=== PATIENT | male | born 1990 | race Caucasian/White ===

== ENCOUNTER 2021-08-20 21:51 | Emergency (ER) | payer SELFPAY ==
[~2021-08-20] VITALS: Ht 162.6 cm; Wt 74.0 kg
[2021-08-20] MEDS ORDERED: FLUORESCEIN SODIUM 1MG/STRIP LEFTEYE ONE (22:45)
[2021-08-20] MEDS ORDERED: TETRACAINE 0.5% OPHTH DROPS 4ML LEFTEYE ONE (22:45)
[2021-08-20] MEDS ORDERED: BALANCED SALT IRRIG SOLN 15ML IR ONE (22:45)
[2021-08-21] MEDS ORDERED: ACETAMINOPHEN WITH CODEINE 300/30MG TABLET PO STA (01:14)
[2021-08-21] MEDS ORDERED: NAPR-681 PO (03:11)
[2021-08-21] MEDS ORDERED: ERYT1OIN6 LEFTEYE (03:11)
[2021-08-21] MEDS ORDERED: DOXY100T28 PO (03:12)
[2021-08-21 03:13] VITALS: BP 136/78
== END 2021-08-21 03:18 | disposition home or self-care (01) ==
LOC: ER 21:51
DX: H11.152 Pinguecula, left eye (principal); H01.006 Unspecified blepharitis left eye, unspecified eyelid; Z77.098 Contact with and (suspected) exposure to other hazardous, chiefly nonmedicinal, chemicals
CPT/HCPCS: 99283